=== PATIENT | male | born 1955 | race Caucasian/White ===

== ENCOUNTER → 2016-05-12 | Outpatient (CLI) | payer BC ==
[2016-05-12 11:23] LABS: BASOPHILS % (AUTO) 1 % (0-2); EOSINOPHILS # (AUTO) 0.3 10^3uL; EOSINOPHILS % (AUTO) 5 % (0-4); LYMPHOCYTES # (AUTO) 2.1 X10^3; MEAN CORPUSCULAR HEMOGLOBIN 30.1 PG (26.0-34.0); MEAN CORPUSCULAR HGB CONC 34.8 g/dL (31.0-37.0); MEAN CORPUSCULAR VOLUME 86 FL (80-100); MEAN PLATELET VOLUME 9.9 FL (6.0-9.5); MONOCYTES # (AUTO) 0.8 X10^3; MONOCYTES % (AUTO) 13 % (3-11); NEUTROPHILS # (AUTO) 2.8 X10^3; NEUTROPHILS % (AUTO) 47 % (51-67); PLATELET COUNT 224 10^3uL (150-450); WHITE BLOOD COUNT 6.01 10^3uL (4.0-11.0)
[2016-05-12 11:24] LABS: BILIRUBIN,URINE Negative (Negative); CLARITY,URINE Clear; COLOR,URINE Yellow; GLUCOSE, URINE (UA) Negative (Negative); LEUKOCYTE ESTERASE ,URINE Negative (Negative)
[2016-05-12 11:40] LABS: ALBUMIN 4.1 g/dL (3.4-5.0); ANION GAP 15.3 MEQ/L (3-15); TOTAL PROTEIN 6.9 g/dL (6.4-8.5)
== END ==
LOC: LAB 11:04
PROVIDERS: ATTEND Family Medicine
DX: R79.89 Other specified abnormal findings of blood chemistry (principal); D50.8 Other iron deficiency anemias; D68.4 Acquired coagulation factor deficiency; N39.0 Urinary tract infection, site not specified; E10.65 Type 1 diabetes mellitus with hyperglycemia
CPT/HCPCS: 36415; 80053; 81003; 83036; 85025; 85610; 85730

== ENCOUNTER → 2016-09-17 | Outpatient (CLI) | payer BC ==
[2016-09-17 08:23] LABS: MEAN CORPUSCULAR HEMOGLOBIN 29.3 PG (26.0-34.0); MEAN CORPUSCULAR HGB CONC 33.8 g/dL (31.0-37.0); MEAN CORPUSCULAR VOLUME 87 FL (80-100); MEAN PLATELET VOLUME 9.4 FL (6.0-9.5); PLATELET COUNT 209 10^3uL (150-450); WHITE BLOOD COUNT 4.82 10^3uL (4.0-11.0)
[2016-09-17 08:35] LABS: ALBUMIN 4.2 g/dL (3.4-5.0); ALKALINE PHOSPHATASE 59 U/L (38-126); ANION GAP 13.9 MEQ/L (3-15); BUN/CREATININE RATIO 17 (10-20); CALCULATED IONIZED CALCIUM 3.8 mg/dL (3.8-4.6); MAGNESIUM* 2.1 mg/dL (1.6-2.3); TOTAL PROTEIN 7.6 g/dL (6.4-8.5)
[2016-09-17 08:49] LABS: SEGMENTED NEUTROPHILS % 45 % (51-67)
[2016-09-17 08:50] LABS: BAND NEUTROPHILS % 0 % (0-6); EOSINOPHILS % 8 % (0-4); MONOCYTES % 11 % (3-11); RBC MORPH NORMAL (NORMAL); TOTAL CELLS COUNTED 100
[2016-09-17 09:27] LABS: ERYTHROCYTE SEDIMENTATION RT* 19 mm/hr (0-19)
--- NOTE | 2016-09-17 11:57 | Diagnostic Imaging Report ---
INDICATION: Right foot pain. AP, oblique, and lateral views of the right foot are obtained. 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 There is mild diffuse degenerative change of the interphalangeal joints. There is some degree of degenerative change of the ankle joint as well as some posterior calcaneal spurring. No definite acute finding is seen. There is no erosive bony lesion. IMPRESSION: Chronic findings as above with no acute fracture or erosive bony lesion. Dictated by: Dictated on workstation # [id number]
[2016-09-17 19:34] LABS: VITAMIN B 12 252 pg/mL (213-816)
== END ==
LOC: RAD 07:55
PROVIDERS: ATTEND Family Medicine
DX: M12.871 Other specific arthropathies, not elsewhere classified, right ankle and foot (principal); R53.83 Other fatigue; E83.42 Hypomagnesemia; E03.4 Atrophy of thyroid (acquired); G60.3 Idiopathic progressive neuropathy
CPT/HCPCS: 36415; 80053; 82607; 82746; 83735; 84436; 84443; 85025; 85652; 86431